=== PATIENT | female | born 1990 | race Caucasian/White ===

== ENCOUNTER 2017-03-27 21:25 | Emergency (ER) | payer OTHER ==
--- NOTE | 2017-03-27 21:36 | Emergency Department Record ---
History of Present Illness - General Chief Complaint: Chest Pain Stated Complaint: CHEST PAIN Time Seen by Provider: 03/27/17 21:28 Source: Patient Mode of Arrival: Ambulatory Limitations: No limitations - History of Present Illness Initial Comments: 26 yo female presents to ED for symptoms of chest "tightness", dizziness, and numbness/tingling to the arms bilaterally this evening. Patient reports a recent history of similar symptoms, has recently undergone both an echo and EKG x 2, is scheduled to have Holter Monitor placed in 3 days. Patient reports that she was told she may have anxiety symptoms, denies history of heart or lung problems at her baseline other than exercise-induced asthma. Patient denies calf swelling or history of DVT, but does have implanted control. MD Complaint: Chest pain Onset/Timin -: Minutes(s) Pain Location: Substernal Pain Radiation: RUE, LUE Severity: Moderate Quality: Tightness Consistency: Constant Improves With: Nothing Worsens With: Nothing - Related Data On Oral Contraceptives: No Home Medications Medication Instructions Recorded Confirmed Last Taken Alprazolam [Alprazolam] 0.25 mg PO DAILY 03/27/17 03/27/17 Unknown Escitalopram Oxalate [Lexapro] 5 mg PO DAILY 03/27/17 03/27/17 03/27/17 Meloxicam [Meloxicam] 7.5 mg PO DAILY PRN 03/27/17 03/27/17 Unknown Allergies Allergy/AdvReac Type Severity Reaction Status Date / Time sulfamethoxazole Allergy RASH Verified 03/27/17 21:29 [From Bactrim] trimethoprim [From Bactrim] Allergy RASH Verified 03/27/17 21:29 Review of Systems Constitutional: Denies: Chills, Fever, Malaise, Night sweats Eyes: Denies: Eye discharge, Eye pain ENT: Denies: Congestion, Ear pain, Epistaxis Respiratory: Denies: Cough, Dyspnea Cardiovascular: Reports: Chest pain. Denies: Dyspnea on exertion Endocrine: Denies: Fatigue, Heat or cold intolerance Gastrointestinal: Denies: Abdominal pain, Nausea, Vomiting Genitourinary: Denies: Incontinence, Retention Musculoskeletal: Denies: Arthralgia, Back pain, Gout, Joint swelling Skin: Denies: Bruising, Change in color Neurological: Denies: Abnormal gait, Confusion, Headache, Seizure Psychiatric: Denies: Anxiety Hematological/Lymphatic: Denies: Anemia, Blood Clots Physical Exam - General General Appearance: Alert, Oriented x3, Cooperative, No acute distress, Other ( texting on mobile phone upon entering the room) Limitations: No limitations - Head Head exam: Atraumatic, Normocephalic, Normal inspection Head exam detail: negative: Abrasion, Contusion, Peng's sign, General tenderness, Hematoma, Laceration - Eye Eye exam: Normal appearance. negative: Conjunctival injection, Periorbital swelling, Periorbital tenderness, Scleral icterus - ENT Ear exam: negative: Auricular hematoma, Auricular trauma Nasal Exam: negative: Active bleeding, Discharge, Dried blood, Foreign body Mouth exam: negative: Drooling, Laceration, Muffled voice, Tongue elevation - Neck Neck exam: Normal inspection. negative: Meningismus, Tenderness - Respiratory Respiratory exam: Normal lung sounds bilaterally. negative: Rales, Respiratory distress, Rhonchi, Stridor - Cardiovascular Cardiovascular Exam: Regular rate, Normal rhythm, Normal heart sounds - GI/Abdominal GI/Abdominal exam: Soft. negative: Rebound, Rigid, Tenderness - Rectal Rectal exam: Deferred - exam: Deferred - Extremities Extremities exam: Normal inspection. negative: Pedal edema, Tenderness - Back Back exam: Denies: CVA tenderness (R), CVA tenderness (L) - Neurological Neurological exam: Alert, Normal gait, Oriented X3 - Psychiatric Psychiatric exam: Normal affect, Normal mood - Skin Skin exam: Normal color. negative: Abrasion Type of lesion: negative: abrasion Course - Reevaluation(s) Reevaluation #1: 03/27/17 21:36 EKG: NSR 86 Normal axis, normal intervals No acute ST-T wave changes Reevaluation #2: 03/27/17 22:12 Labs reviewed and are grossly unremarkable for an acute process. Reevaluation #3: 03/27/17 22:32 CXR: No acute process Patient reassessed and reports that she is feeling much better. Patient appears stable for discharge at this time with follow-up as directed with her PCP. Medical Decision Making - Lab Data Result diagrams: 03/27/17 21:35 03/27/17 21:35 Disposition Disposition: Discharge Clinical Impression: Chest pain Qualifiers: Chest pain type: unspecified Qualified Code(s): R07.9 - Chest pain, unspecified Disposition: Home, Self-Care Condition: (2) Stable Instructions: Noncardiac Chest Pain (ED) Additional Instructions: Return to ED if your symptoms worsen or if you have any concerns. Follow-up with your family doctor in 3-5 days as directed. Forms: Patient Portal Access Time of Disposition: 22:33 Quality - Quality Measures Quality Measures: N/A - Blood Pressure Screening Does Patient Have Any of the Following: No Blood Pressure Classification: Hypertensive Reading Systolic Measurement: 136 Diastolic Measurement: 93 Screening for High Blood Pressure: < First Hypertensive BP, F/U Documented > [ [id number]] First Hypertensive Follow-up Interventions: Referral to alternative/primary care provider.
[2017-03-27] MEDS ORDERED: LORAZEPAM 2 MG/ML VIAL IV ONE (21:45)
[2017-03-27 21:51] LABS: BASO % 0.5 % (0-6); EOS % 1.4 % (0-6); GRAN % 56.1 % (47-80); HEMATOCRIT 42.8 % (35.0-47.0); HEMOGLOBIN 14.5 gm/dl (11.6-16.0); LYMPH % 36.8 % (16-45); MEAN CELL VOLUME 85.9 fl (81-97); MEAN CORPUSCULAR HEMOGLOBIN 29.1 pg (27-33); MEAN CORPUSCULAR HGB CONC 33.9 g/dl (32-36); MEAN PLATELET VOLUME 8.5 fl (7.4-10.4); MONO % 5.2 % (0-9); PLATELET COUNT 322 K/uL (130-400); RED BLOOD COUNT 4.98 M/uL (3.80-5.40); RED CELL DISTRIBUTION WIDTH 12.6 % (11.5-14.5); WHITE BLOOD COUNT W/O DIFF 8.4 K/uL (4.2-12.2)
[2017-03-27 22:04] LABS: BLOOD UREA NITROGEN 8 mg/dL (6-20); CREATININE 0.8 mg/dL (0.5-0.9); EST GLOMERULAR FILTRATION RATE > 60 mL/min
[2017-03-27 22:05] LABS: TOTAL PROTEIN 7.4 g/dL (6.6-8.7)
[2017-03-27 22:07] LABS: GLUCOSE,RANDOM 116 mg/dL (74-109)
[2017-03-27 22:09] LABS: ALT/SGPT 21 U/L (<33); AST/SGOT 15 U/L (10.0-35.0)
[2017-03-27 22:10] LABS: ALBUMIN 4.9 g/dL (4.0-5.0); ALKALINE PHOSPHATASE 52 U/L (35-104)
--- NOTE | 2017-03-28 08:49 | RADIOLOGY REPORT ---
EXAM: CHEST, TWO VIEWS HISTORY: CHEST PAIN AND DIFFICULTY BREATHING. TECHNIQUE: Two views of the chest were obtained. Comparison: None. FINDINGS: The heart is not enlarged and there is no mediastinal mass. No infiltrate or vascular congestion. There is dextroscoliosis. IMPRESSION: 1. NO ACUTE CARDIAC OR PULMONARY ABNORMALITY. 2. DEXTROSCOLIOSIS. JOB NUMBER: [id number] MTDD
== END 2017-03-27 22:45 | disposition home or self-care (01) ==
LOC: ER 21:25
DX: R07.89 Other chest pain (principal); R42 Dizziness and giddiness; R06.00 Dyspnea, unspecified
CPT/HCPCS: 99284 ×2; 96374; 85025; 80053; 85379; 71046; 93005; 93010; J2060